=== PATIENT | female | born 1990 | race Caucasian/White ===

== ENCOUNTER → 2016-05-02 | Outpatient (CLI) | payer MEDICAID ==
[~2016-05-02] MED LIST: IBUP80TA PO
--- NOTE | 2016-05-02 15:03 | REP ---
OBSTETRIC SONOGRAPHY: HISTORY: Supervision of at 20 weeks. Follow up anatomy. FINDINGS: Scanning through the gravid uterus demonstrates a viable single intrauterine gestation in a cephalic lie. motion is observed and heart rate is recorder 149 beats per minute. An anterior grade 1 placenta is seen without evidence of previa or abruption. Amniotic fluid is subjectively normal. Closed cervical length is 3.7 cm. No extrauterine abnormalities observed. There has been appropriate interval growth. No anomaly is seen. The following anatomic structures are identified today and felt to be sonographically unremarkable: cranium, choroid plexus, cavum, cerebellum and posterior fossa, face and profile, lungs, four-chamber heart with left and right ventricular outflow tract views, diaphragm, left-sided stomach, abdominal wall cord insertion, three-vessel umbilical cord, kidneys, spine, upper and lower extremities. Biometry Chart: BPD 5.9 cm = 24 weeks 0 days HC 21.2 cm = 23 weeks 2 days AC 19.4 cm = 24 weeks 1 day FL 4.0 cm = 22 weeks 5 days HL 3.7 cm = 23 weeks 1 day HC/AC ratio normal 1.09. Cephalic index normal 0.78. Estimated weight 599 grams, 1 pound 5 ounces, 64th percentile for 22 weeks 6 days. IMPRESSION: Viable single intrauterine gestation at 23 weeks 3 days by today's composite sonographic criteria. Expected gestational age estimate based on prior sonography is 23 weeks 6 days. NADER by prior sonography is August 23, 2016. Signed by Abraham Echeverria MD 05/02/2016 03:11 P
== END ==
LOC: M RAD 12:11
PROVIDERS: ATTEND Obstetrics & Gynecology
DX: Z36 Encounter for antenatal screening of mother (principal); Z3A.23 23 weeks gestation of pregnancy

== ENCOUNTER → 2016-05-28 | Outpatient (CLI) | payer MEDICAID ==
[2016-05-28 15:23] LABS: BASO % 0.3 % (0.0-1.0); EOS # 0.1 K/mm3 (0.0-0.50); EOS % 1.3 % (0.0-3.0); LARGE UNSTAINED CELL # 0.1 K/mm3 (0.0-0.4); LARGE UNSTAINED CELL % 1.6 % (0.0-4.0); LYMPH # 1.9 K/mm3 (1.5-6.5); LYMPH % 21.4 % (24.0-44.0); MEAN CORPUSCULAR HEMOGLOBIN 30.8 pg (27.0-33.0); MEAN CORPUSCULAR HGB CONC 33.9 g/dl (32.0-36.5); MEAN CORPUSCULAR VOLUME 90.9 fl (80.0-96.0); MONO # 0.6 K/mm3 (0.0-0.8); MONO % 7.9 % (0.0-5.0); NEUTROPHILS # 5.5 K/mm3 (1.8-7.7); NEUTROPHILS % 67.5 % (36.0-66.0); PLATELET COUNT, AUTOMATED 192 k/mm3 (150-450); RED CELL DISTRIBUTION WIDTH 13.2 % (11.5-14.5); WHITE BLOOD COUNT 8.1 K/mm3 (4.0-10.0)
== END ==
LOC: M LAB 13:00
PROVIDERS: ATTEND Advanced Practice Midwife
DX: Z36 Encounter for antenatal screening of mother (principal); Z3A.00 Weeks of gestation of pregnancy not specified

== ENCOUNTER → 2016-07-13 | Outpatient (REF) | payer MEDICAID | LOC: M SFHCLERA 12:07 | PROVIDERS: ATTEND Physician Assistant | DX: J02.9 Acute pharyngitis, unspecified (principal) ==

== ENCOUNTER 2016-07-29 20:44 | Outpatient (CLI) | payer MEDICAID ==
[2016-07-29] VITALS (7 sets, daily range): BP systolic 69–105; BP diastolic 37–68
[2016-07-29] MEDS ORDERED: LR 1,000 ML IV ONE (22:00)
--- NOTE | 2016-07-29 22:23 | IPNPDOC ---
Text Note Date of Service The patient was seen on 07/29/16 at 2145. NOTE Subjective: Patient is a 25 year old female who is a at 35 weeks 3 days gestation with an NADER of 08/30/16 based off of her 1st trimester ultrasound and consistent with her LMP. She has had 2 prior full term deliveries via and desires a repeat . Her has been complicated by heartburn, which she occasionally takes the Zantac she was prescribed. She presents to L& D with complaints of chris [place] contractions, cramping, not feeling well, and back discomfort. She states for the last 4 days she hasn't felt well and has had occasional cramping. Reports back discomfort started at 1700 tonight. She also reports feeling pressure. Denies dysuria but reports frequency. States she relaxed and took a warm bath to help her back discomfort, which did not help. States she has been eating without any issues. Denies constipation. Denied vaginal bleeding or leaking of fluid. Reports active movement. O: FHR: 130, moderate variability, positive accelerations, 1 isolated deceleration noted but no other deceleration noted. Contractions every 2-5 minutes. Abdomen: gravid, soft to palpation. SVE: closed, thick, posterior, no show Extremities: bilateral lower feet and legs no edema. Urine dip: pH 1.005, +ketones, +leuks, +protein. Vital signs: 98.3, 133, 18, 104/57; repeat: 94 HR, 96/56. A: IUP at 35 wks 3 days gestation, not in labor, Category I FHR tracing P: Start IV, bolus of 1 liter of fluid, urine sent for UA and C&S. NST and vitals per protocols. Anticipate patient to be discharged home with mother. LOGAN MCKENNA CNM Jul 29, 2016 22:23
[2016-07-29] MEDS ORDERED: CEPHALEXIN 500 MG CAP PO ONE (22:45)
--- NOTE | 2016-07-29 23:23 | IPNPDOC ---
Text Note Date of Service The patient was seen on 07/29/16 at 2300. NOTE S: No changes. O: FHR 120, moderate variability, positive accelerations, no decelerations. Contractions: every 3-6 minutes. A: IUP at 35. 3 weeks gestation, Category I FHR tracing, urinary tract infection , not in labor P: Patient started on Keflex. Script sent to pharmacy. Reviewed with patient the importance of taking antibiotic as prescribed for 7 days. She will follow up in office at her next scheduled appointment on 08/05/16. Reviewed access to care, cross coverage of care, FKC, labor s/sx, and danger signs to report. Patient discharge to home with her mother. VS,Fishbone, I+O VS, Fishbone, I+O Vital Signs Date Time Temp Pulse Resp B/P Pulse Ox O2 Delivery O2 Flow Rate FiO2 07/29/16 21:56 93 07/29/16 21:50 94/61 07/29/16 20:53 98.3 18 LOGAN MCKENNA CNM Jul 29, 2016 23:23
== END 2016-07-29 23:35 | disposition home or self-care (01) ==
LOC: M LDO 20:44
PROVIDERS: ATTEND Advanced Practice Midwife
DX: O47.03 False labor before 37 completed weeks of gestation, third trimester (principal); O26.93 Pregnancy related conditions, unspecified, third trimester; R12 Heartburn; Z3A.35 35 weeks gestation of pregnancy

== ENCOUNTER → 2016-08-05 | Outpatient (REF) | payer MEDICAID ==
[~2016-08-05] MED LIST changes: +PRENTAB9 PO
== END ==
LOC: M LAB REF 16:49
PROVIDERS: ATTEND Obstetrics & Gynecology
DX: Z3A.36 36 weeks gestation of pregnancy (principal)

== ENCOUNTER 2016-08-12 09:56 | Outpatient (CLI) | payer MEDICAID ==
[~2016-08-12] VITALS: Ht 157.5 cm; Wt 62.0 kg
[~2016-08-12 09:56] MED LIST changes: -PRENTAB9 PO
[2016-08-12] MEDS ORDERED: PRENTAB9 PO (10:02)
[2016-08-12 10:04] VITALS: BP 101/60
[2016-08-12 10:09] VITALS: BP 85/53
[2016-08-12 10:17] VITALS: BP 94/63
[2016-08-12 10:38] LABS: CALCIUM OXALATE CRYSTALS SMALL
[2016-08-12 11:06] VITALS: BP 101/60
[2016-08-12] MEDS ORDERED: LR 1,000 ML IV SCH (11:15)
[2016-08-12] MEDS ORDERED: LACTATED RINGER'S 1000 ML IV ONE (11:15)
[2016-08-12 11:20] LABS: BASO % 0.4 % (0.0-1.0); EOS # 0.2 K/mm3 (0.0-0.50); EOS % 2.5 % (0.0-3.0); LARGE UNSTAINED CELL # 0.2 K/mm3 (0.0-0.4); LARGE UNSTAINED CELL % 1.9 % (0.0-4.0); LYMPH % 25.2 % (24.0-44.0); MEAN CORPUSCULAR HGB CONC 34.1 g/dl (32.0-36.5); MONO # 0.5 K/mm3 (0.0-0.8); MONO % 5.9 % (0.0-5.0); NEUTROPHILS % 64.2 % (36.0-66.0); PLATELET COUNT, AUTOMATED 213 k/mm3 (150-450); RED CELL DISTRIBUTION WIDTH 13.1 % (11.5-14.5); WHITE BLOOD COUNT 7.8 K/mm3 (4.0-10.0)
--- NOTE | 2016-08-12 11:27 | REP ---
OB ULTRASOUND: Real-time sonographic evaluation of the gravid uterus is performed utilizing transabdominal technique. There is a single living intrauterine gestation with a gestational age 37 weeks 3 days with EDC 08/30/2016. Today's measurements indicate appropriate growth. Biometry and Growth: BPD 94 mm = 38 weeks 1 day, 60th percentile HC 323 mm = 38 weeks 0 days, 60th percentile AC 340 mm = 38 weeks 0 days, 58th percentile FL 75 mm = 38 weeks 1 day, 60th percentile HC/AC ratio 0.98 within normal range. Estimated weight 3369 grams 66th percentile. Cervical length: Closed and measures 3.4 cm in length. heart rate: 144 beats per minute. position: Vertex Placenta: Anterior and grade 0 with no previa or abruption. Amniotic fluid: Lower limits of normal, NOEMY 7.2, normal range 7.4 to 24.2. Biophysical profile score 8 out of 8. S/D ratio 2.10 within normal range of 1.6 to 2.6. RI 0.52, slightly below the normal range of 0.59 to 0.75. Choroid plexus, four-chamber heart, stomach, kidneys, and bladder are visualized and are grossly unremarkable. Signed by Matthew Ocasio MD 08/12/2016 05:42 P
[2016-08-12 11:55] LABS: ALBUMIN 2.3 GM/DL (3.2-5.2); ALBUMIN/GLOBULIN RATIO 0.64 (1.00-1.93); ALKALINE PHOSPHATASE 260 U/L (45-117); ALT/SGPT 70 U/L (12-78); ANION GAP 10 MEQ/L (8-16); AST/SGOT 66 U/L (15-37); BILIRUBIN,TOTAL 1.1 MG/DL (0.2-1.0); BLOOD UREA NITROGEN 7 MG/DL (7-18); CALCIUM LEVEL 8.4 MG/DL (8.5-10.1); CARBON DIOXIDE LEVEL 24 MEQ/L (21-32); CHLORIDE LEVEL 107 MEQ/L (98-107); CREATININE FOR GFR 0.54 MG/DL (0.55-1.02); GLOMERULAR FILTRATION RATE > 60.0 (>60); GLUCOSE, FASTING 84 MG/DL (70-105); POTASSIUM SERUM 3.8 MEQ/L (3.5-5.1); SODIUM LEVEL 141 MEQ/L (136-145); TOTAL PROTEIN 5.9 GM/DL (6.4-8.2); URIC ACID 4.6 MG/DL (2.6-6.0)
--- NOTE | 2016-08-13 10:09 | IPNPDOC ---
Text Note Date of Service The patient was seen on 08/12/16 at 1230. NOTE SUBJECTIVE: Patient is a 25 year old female who is at 37 weeks 3 days gestation with NADER of 08/30/16 based off of 1st trimester ultrasound and consistent with her LMP. She is a prior section x2 and desires a repeat . She arrived to L&D with complaints of decreased movement. She reports not having movement for more than 12 hours. She is also complaining of feeling moist. Reports that the discharge soaked through he underwear. She reports putting a pad on at home and it stayed dry most of the day. Reports occasional irregular contractions. Denies vaginal bleeding. Allergies: NKDA Current medications: PNV, Zantac Medical: no current problems Surgical: section in 2007 and 2012, tonsilectomy Family history: non-contributory OBJECTIVE: VS see below. FHR: 150, moderate variability, positive accelerations , no decelerations, prolonged acceleration noted. Contractions are occasional. Sterile speculum exam done. Moderate amount of thin, white, discharge noted. No fluid noted from cervical os with cough. Negative nitrazine, negative wet prep, negative fern. ASSESSMENT: IUP at 37 weeks 3 days gestation, not in active labor, not spontaneously ruptured, Category I FHR tracing, prior section x2. PLAN: Patient discharged to home. Reviewed access to care, FKC, labor s/sx, and danger signs to report. Continue routine OB visits. Repeat c/s on 08/26/16 at 0730. VS,Freddy, I+O VS, Soye, I+O Laboratory Tests 08/12/16 11:12 Red Blood Count 3.43 L, Mean Corpuscular Volume 85.0, Mean Corpuscular Hemoglobin 29.0, Mean Corpuscular Hemoglobin Concent 34.1, Red Cell Distribution Width 13.1, Neutrophils (%) (Auto) 64.2, Lymphocytes (%) (Auto) 25.2, Monocytes (%) (Auto) 5.9 H, Eosinophils (%) (Auto) 2.5, Basophils (%) ( Auto) 0.4, Neutrophils # (Auto) 5.0, Lymphocytes # (Auto) 2.0, Monocytes # (Auto ) 0.5, Eosinophils # (Auto) 0.2, Basophils # (Auto) 0.0, Calcium Level 8.4 L, Aspartate Amino Transf (AST/SGOT) 66 H, Alanine Aminotransferase (ALT/SGPT) 70, Alkaline Phosphatase 260 H, Total Bilirubin 1.1 H, Uric Acid 4.6, Total Protein 5.9 L, Albumin 2.3 L Vital Signs Date Time Temp Pulse Resp B/P (MAP) Pulse Ox O2 Delivery O2 Flow Rate FiO2 08/12/16 11:06 83 101/60 (74) 08/12/16 10:04 97.2 18 LOGAN MCKENNA CNM August 13, 2016 10:09
== END 2016-08-12 13:01 | disposition home or self-care (01) ==
LOC: M LDO 09:56
PROVIDERS: ATTEND Obstetrics & Gynecology
DX: O36.8130 Decreased fetal movements, third trimester, not applicable or unspecified (principal); Z3A.37 37 weeks gestation of pregnancy

== ENCOUNTER 2016-08-22 01:21 | Inpatient (IN) | payer BC, MEDICAID ==
[~2016-08-22] VITALS: Ht 157.5 cm; Wt 63.0 kg
[2016-08-22] VITALS (10 sets, daily range): BP systolic 106–120; BP diastolic 56–70
[~2016-08-22 01:21] MED LIST changes: +PRENTAB9 PO; +ZANT1TAB PO
[2016-08-22] MEDS ORDERED: LACTATED RINGER'S 1000 ML IV STA (01:44)
[2016-08-22] MEDS ORDERED: LR 1,000 ML IV SCH (01:44)
[2016-08-22] MEDS ORDERED: ceFAZolin SOD 1 GM in D5W MINI-BAG PLUS 50 ML IV ONE (01:45)
[2016-08-22] MEDS ORDERED: BICITRA 30ML SOLN UDC PO ONE (01:45)
[2016-08-22 03:42] LABS: MEAN CORPUSCULAR HEMOGLOBIN 27.3 pg (27.0-33.0); MEAN CORPUSCULAR HGB CONC 32.6 g/dl (32.0-36.5); MEAN CORPUSCULAR VOLUME 83.9 fl (80.0-96.0); RED CELL DISTRIBUTION WIDTH 13.2 % (11.5-14.5); WHITE BLOOD COUNT 10.9 K/mm3 (4.0-10.0)
[2016-08-22] MEDS ORDERED: MORPHINE PRES-FREE INJ 10 MG/10 ML VIAL (J2274) As Ordered ONE (05:46)
[2016-08-22] MEDS ORDERED: OXYTOCIN INJ 10 UNITS/ML VIAL (J2590) As Ordered ONE (05:47)
[2016-08-22] MEDS ORDERED: ONDANSETRON 4MG/2ML VIAL (J2405) IV PRN ×3 (06:06→07:30)
[2016-08-22] MEDS ORDERED: NALBUPHINE HCL 10 MG/ML AMP (J2300) IV PRN ×2 (06:06→07:30)
[2016-08-22] MEDS ORDERED: NALOXONE INJ 0.4 MG/1 ML VIAL (J2310) IV PRN ×2 (06:06)
[2016-08-22] MEDS ORDERED: METOCLOPRAMIDE INJ 10MG/2ML VIAL (J2765) IV PRN (06:06)
[2016-08-22] MEDS ORDERED: PHENYLephrine HCL 500 MCG/5 ML (100MCG/ML) SYRINGE (J2370) As Ordered ONE (06:09)
[2016-08-22] MEDS ORDERED: ePHEDrine SULFATE 25 MG/5 ML(5MG/ML) SYRINGE As Ordered ONE (06:16)
[2016-08-22 06:32] LABS: CORD GAS ABE A -0.9; CORD GAS HCO3 A 25.8 MEQ/L; CORD GAS O2 SAT A 46.2 %; CORD GAS PCO2 A 51.2 mmHg; CORD GAS PH A 7.321 UNITS; CORD GAS PO2 A 20.1 mmHg; CORD GAS SBC A 22.5 MEQ/L; CORD GAS TCO2 A 27.4 MEQ/L
[2016-08-22 06:35] LABS: CORD GAS ABE V -3.3; CORD GAS O2 SAT V 43.4 %; CORD GAS PCO2 V 45.7 mmHg; CORD GAS PH V 7.319 UNITS; CORD GAS PO2 V 18.8 mmHg; CORD GAS SBC V 20.5 MEQ/L; CORD GAS TCO2 V 24.4 MEQ/L
[2016-08-22] MEDS ORDERED: ONDANSETRON 4MG/2ML VIAL (J2405) As Ordered ONE (06:36)
[2016-08-22] MEDS: LR 1,000 ML IV SCH ×2 (06:59→21:44)
[2016-08-22] MEDS ORDERED: MEASLES,MUMPS,RUBELLA VACCINE INJ (MMR-II) (90707) SC SCH (07:00)
[2016-08-22] MEDS ORDERED: METHYLERGONOVINE MALEATE 0.2 MG TAB PO PRN (07:00)
[2016-08-22] MEDS ORDERED: MOM 30ML SUSPENSION UDC PO PRN (07:00)
[2016-08-22] MEDS ORDERED: RHOGAM 300 MCG (1500 IU) INJ (J2790) IM SCH (07:00)
[2016-08-22] MEDS ORDERED: KETOROLAC 30 MG/ML VIAL (J1885) IV PRN (07:30)
[2016-08-22] MEDS ORDERED: fentaNYL 100 MCG/2 ML INJECTION (J3010) IV PRN (07:30)
[2016-08-22] MEDS ORDERED: KETOROLAC 30 MG/ML VIAL (J1885) As Ordered ONE (08:32)
[2016-08-22] MEDS: DOCUSATE SODIUM 100 MG CAP PO SCH ×2 (09:00→21:44)
[2016-08-22] MEDS: PRENATAL VITAMIN TAB PO SCH (09:00)
[2016-08-22] MEDS ORDERED: LR 500 ML IV ONE (12:15)
--- NOTE | 2016-08-22 15:01 | HPE ---
DATE OF ADMISSION: 08/22/2016 Savanna is a 25-year-old female, 3, para 2-0-0-2 with a history of two prior sections, estimated date of confinement (EDC) of 08/30/2016, estimated gestational age 38 and 5/7 weeks gestation who presented to labor and delivery with complaint of contraction and leakage of fluid. Upon evaluation in labor and delivery, her cervix was closed; however, she was having some uterine irritability and she was found to be positive for ferning. At this point, a decision was made to admit the patient. She was originally scheduled for repeat section in a few days. record was reviewed. Blood type is O+, rubella immune, hepatitis negative, HIV negative. 1-hour sugar testing was within normal limits. Group B streptococcus (GBS) is negative. PAST MEDICAL HISTORY: Denies. PAST SURGICAL HISTORY: section times two and tonsillectomy. SOCIAL HISTORY: Denies any alcohol or drug use. REVIEW OF SYSTEMS: Unremarkable. MEDICATIONS: vitamin. ALLERGIES: No known drug allergies. PHYSICAL EXAMINATION ON ADMISSION: Normal-appearing female in no acute distress. Abdomen is soft, nontender, nondistended. Extremities with no clubbing, cyanosis. Cervix is fingertip, 50% effaced, fetus at -3 station. No gross pooling noted in the vagina. Fern swab was done and the fern was positive. Tracing reviewed, category one tracing. Contractions irregular with lots of uterine irritability. ASSESSMENT: 1. Intrauterine at 38-5/7 weeks gestation with a history of two prior sections. 2. Spontaneous rupture of membranes with clear fluid. PLAN: The patient will be admitted to labor and delivery. Given that she is ruptured and was scheduled for a prior section, we will proceed with a repeat section. Awaiting operating room and labs for repeat section.
[2016-08-22] MEDS: IBUPROFEN 800 MG TAB PO SCH (17:06)
--- NOTE | 2016-08-22 19:57 | ECGEPIP ---
Stationary ECG Study [facility] Test Date: 2016-08-22 Pat Name: PATTIE HUANG Department: Room: [place] [address] Gender: F Turner And Former Automatic: KAREN MAGUIRE : 1990 Requested By: Zenon Horne Order Number: [id number] Reading MD: Paige Horner Measurements Intervals Bourg Rate: 115 P: 50 ND: 119 QRS: 74 QRSD: 100 T: 14 QT: 307 QTc: 426 Interpretive Statements SINUS TACHYCARDIA WITH SHORT ND INTERVAL ABNORMAL RHYTHM ECG NO PRIOR Electronically Signed On 08-22-2016 19:57:22 EDT by Paige Horner
[2016-08-23] MEDS: IBUPROFEN 800 MG TAB PO SCH ×3 (00:28→17:00)
[2016-08-23 02:43] VITALS: BP 105/58
[2016-08-23] MEDS: NORCO, ANEXSIA 5/325MG TABLET (HYDROcodone/ACETAMINOPHEN) PO PRN ×4 (06:02→21:02)
[2016-08-23 06:45] VITALS: BP 107/60
[2016-08-23] MEDS: LR 1,000 ML IV SCH (06:59)
[2016-08-23 07:22] LABS: MEAN CORPUSCULAR HGB CONC 32.7 g/dl (32.0-36.5); MEAN CORPUSCULAR VOLUME 85.9 fl (80.0-96.0); RED CELL DISTRIBUTION WIDTH 13.2 % (11.5-14.5)
[2016-08-23] MEDS: DOCUSATE SODIUM 100 MG CAP PO SCH ×2 (08:11→20:59)
[2016-08-23] MEDS: PRENATAL VITAMIN TAB PO SCH (08:11)
[2016-08-23] MEDS ORDERED: PERCOCET PO (08:41)
[2016-08-23 09:50] VITALS: BP 105/59
--- NOTE | 2016-08-23 10:07 | RO ---
DATE OF PROCEDURE: 08/22/2016 Savanna is a 25-year-old female 3, para 2-0-0-2 with a history of two prior sections who presented at 38-5/7 weeks gestation with rupture of membrane. She was already scheduled for prior section. The patient also desires permanent tubal sterilization. At this point, she was then taken to the operating room for the above-noted procedure. PREOPERATIVE DIAGNOSES: 1. Term for elective repeat section. 2. Spontaneous rupture of membrane. 3. Desires permanent tubal sterilization. POSTOPERATIVE DIAGNOSES: 1. Term for elective repeat section. 2. Spontaneous rupture of membrane. 3. Desires permanent tubal sterilization. PROCEDURE: 1. Repeat section. 2. Bilateral tubal ligation using Filshie clip 3. Revision of old scar. SURGEON: Zenon Horne DO SENIOR CREDIT ANALYST: Anny Velázquez ANESTHESIA: Spinal. COMPLICATIONS: None. ESTIMATED BLOOD LOSS: 500 mL. FINDINGS: Live male infant in occiput transverse position. scores of 8 and 9. weight 8 pounds 15 ounces. Normal-appearing tubes and ovaries. PROCEDURE: After obtaining informed consent, the patient was taken to the operating room where spinal anesthetic was found to be adequate. She was then draped and prepped usual sterile fashion. The supine position. At this point, an elliptical incision was made over her old scar. The old scar was removed. The incision was then carried down to the fascia. Fascia was incised in midline fashion and carried through laterally. Superior aspect of the fascia were grasped with two Elvis clamps, tented off and dissected off the rectus muscles sharply. The inferior aspect was dissected off in a similar fashion. Rectus muscles in midline fashion. Perineum identified. Peritoneal cavity entered bluntly. Superior and inferior dissection of the peritoneum was then done with good visualization of the bladder. At this point, a Mobius skin retractor was placed. A low-transverse uterine incision was made. was delivered in atraumatic fashion. Nose and mouth bulb suctioned. Cord doubly clamped and cut, and was handed over to the awaiting warmer. Cord blood and cord gas was sent. Placenta removed manually. Uterus cleared of all clot and debris and the uterine incision was then repaired in two separate layers of 0 Vicryl suture. Attention was then turned to the fallopian tubes where the fimbriated ends were identified and Filshie clip was applied approximately 2-3 cm away from the cornual area in each tube. Pelvis copiously irrigated with normal saline and suctioned out. Attention turned to the peritoneum, which was closed in a running fashion using #2-0 Vicryl. Fascia closed in two separate segment of #0 Vicryl sutures. All superficial bleeders coagulated and the skin was reapproximated in a subcuticular fashion using #3-0 Vicryl. Steri-Strips placed. The patient tolerated procedure well. She was then transferred to recovery room in stable condition.
[2016-08-23 14:00] VITALS: BP 115/58
[2016-08-23] MEDS ORDERED: SIMETHICONE 80 MG CHEW TAB PO PRN (15:45)
[2016-08-23] MEDS ORDERED: IBUPROFEN 800 MG TAB PO SCH (17:00)
[2016-08-23 18:30] VITALS: BP 124/64
[2016-08-24] MEDS: IBUPROFEN 800 MG TAB PO SCH ×2 (01:00→08:40)
[2016-08-24] MEDS: NORCO, ANEXSIA 5/325MG TABLET (HYDROcodone/ACETAMINOPHEN) PO PRN ×2 (05:40→09:48)
[2016-08-24 06:00] VITALS: BP 100/55
[2016-08-24] MEDS ORDERED: IBUP800T23 PO (08:21)
[2016-08-24] MEDS ORDERED: OXYC1TAB23 PO (08:23)
[2016-08-24] MEDS: DOCUSATE SODIUM 100 MG CAP PO SCH (08:38)
[2016-08-24] MEDS: PRENATAL VITAMIN TAB PO SCH (08:38)
[2016-08-24] MEDS ORDERED: MILKSUS PO (11:13)
== END 2016-08-24 13:35 | disposition home or self-care (01) | DRG 540 ==
LOC: M LDO 01:21 → M LDI 01:45 → M OBS 09:05
PROVIDERS: ADMIT Obstetrics & Gynecology; ATTEND Obstetrics & Gynecology
PROC: 0UL70DZ Occlusion of Bilateral Fallopian Tubes with Intraluminal Device, Open Approach (ICD-10-PCS; 2016-08-22)
PROC: 10D00Z1 Extraction of Products of Conception, Low, Open Approach (ICD-10-PCS; principal; 2016-08-22 06:17)
DX: O34.211 Maternal care for low transverse scar from previous cesarean delivery (principal); Z3A.38 38 weeks gestation of pregnancy; O75.82 Onset (spontaneous) of labor after 37 completed weeks of gestation but before 39 completed weeks gestation, with delivery by (planned) cesarean section; Z37.0 Single live birth; Z30.2 Encounter for sterilization

== ENCOUNTER → 2016-10-18 | Outpatient (REF) ==
[~2016-10-18] MED LIST changes: +CIPR-249 PO; +FLUC150T PO; +IBUP1TAB7 PO; +IRON65TA PO; +MILKSUS PO; +ORTHTAB14 PO; +OXYC1TAB23 PO; +PERCOCET PO; +PROV10TA PO; +PYRI1TAB5 PO
== END ==
LOC: M LAB 09:53
PROVIDERS: ATTEND Nurse Practitioner Adult Health
DX: Z02.1 Encounter for pre-employment examination (principal)

== ENCOUNTER → 2016-11-07 | Outpatient (REF) | payer MEDICAID ==
[2016-11-07 13:54] LABS: MEAN CORPUSCULAR HEMOGLOBIN 24.6 pg (27.0-33.0); MEAN CORPUSCULAR HGB CONC 31.2 g/dl (32.0-36.5); MEAN CORPUSCULAR VOLUME 78.9 fl (80.0-96.0); RED CELL DISTRIBUTION WIDTH 14.3 % (11.5-14.5); WHITE BLOOD COUNT 4.3 K/mm3 (4.0-10.0)
== END ==
LOC: M LAB REF 12:42
PROVIDERS: ATTEND Obstetrics & Gynecology
DX: N93.8 Other specified abnormal uterine and vaginal bleeding (principal)

== ENCOUNTER 2016-11-13 16:39 | Emergency (ER) | payer BC, MEDICAID ==
[~2016-11-13] VITALS: Ht 157.5 cm; Wt 57.6 kg
[~2016-11-13 16:39] MED LIST changes: -CIPR-249 PO; -FLUC150T PO; -IRON65TA PO; -ORTHTAB14 PO; -PROV10TA PO; -PYRI1TAB5 PO
[2016-11-13] MEDS ORDERED: NS 1,000 ML IV ONE (17:30)
[2016-11-13 17:51] LABS: BASO % 0.5 % (0.0-1.0); EOS # 0.1 K/mm3 (0.0-0.50); EOS % 1.3 % (0.0-3.0); LARGE UNSTAINED CELL # 0.1 K/mm3 (0.0-0.4); LARGE UNSTAINED CELL % 2.7 % (0.0-4.0); LYMPH % 41.3 % (24.0-44.0); MEAN CORPUSCULAR HEMOGLOBIN 23.2 pg (27.0-33.0); MEAN CORPUSCULAR HGB CONC 30.4 g/dl (32.0-36.5); MEAN CORPUSCULAR VOLUME 76.3 fl (80.0-96.0); MONO # 0.4 K/mm3 (0.0-0.8); MONO % 7.2 % (0.0-5.0); NEUTROPHILS # 2.2 K/mm3 (1.8-7.7); NEUTROPHILS % 46.9 % (36.0-66.0); PLATELET COUNT, AUTOMATED 290 k/mm3 (150-450); RED CELL DISTRIBUTION WIDTH 13.7 % (11.5-14.5); WHITE BLOOD COUNT 4.8 K/mm3 (4.0-10.0)
[2016-11-13 17:52] LABS: ADD MORPHOLOGY? YES
[2016-11-13 18:19] LABS: ALBUMIN 3.9 GM/DL (3.2-5.2); ALBUMIN/GLOBULIN RATIO 1.26 (1.00-1.93); ALKALINE PHOSPHATASE 64 U/L (45-117); ALT/SGPT 19 U/L (12-78); ANION GAP 9 MEQ/L (8-16); AST/SGOT 15 U/L (15-37); BILIRUBIN,DIRECT 0.2 MG/DL (0.0-0.2); BILIRUBIN,TOTAL 0.9 MG/DL (0.2-1.0); BLOOD UREA NITROGEN 8 MG/DL (7-18); CALCIUM LEVEL 8.7 MG/DL (8.5-10.1); CARBON DIOXIDE LEVEL 27 MEQ/L (21-32); CHLORIDE LEVEL 106 MEQ/L (98-107); CREATININE FOR GFR 0.72 MG/DL (0.55-1.02); GLOMERULAR FILTRATION RATE > 60.0 (>60); GLUCOSE, FASTING 105 MG/DL (70-105); POTASSIUM SERUM 3.7 MEQ/L (3.5-5.1); SODIUM LEVEL 142 MEQ/L (136-145)
[2016-11-13 18:47] LABS: ANISOCYTOSIS 1+; HYPOCHROMASIA 2+; MICROCYTOSIS 1+; OVALOCYTES 1+
[2016-11-13 18:49] LABS: POIKILOCYTOSIS 1+
--- NOTE | 2016-11-13 18:50 | REPUSA ---
CLINICAL HISTORY: Bleeding for three months. TECHNIQUE: Realtime sonographic images were obtained in multiple projections. COMMENTS: The uterus is anteverted measuring 9.9 x 5.2 x 7.4 cm. The endometrial echo pattern measures 26.0 mm in thickness. The endometrium is cystic and heterogeneous with some color flow, likely RPOC. There is no evidence of free fluid within the pelvic cul-de-sac. The right ovary measures 3.6 x 2.4 x 2.7 cm with a follicle noted measuring 1.8 x 2.3 x 2.0 cm. The l eft ovary measures 4.7 x 2.9 x 4.2 cm with a cyst noted measuring 2.4 x 3.3 x 2.7 cm. There is no evidence for abnormal vascularity. IMPRESSION: 1. The endometrium is cystic and heterogeneous with some color flow, likely RPOC. 2. Right ovarian follicle. 3. Left ovarian cyst. Thank you for your kind referral of this patient. We appreciate the opportunity to participate in thi s patient's care.
[2016-11-13 19:30] VITALS: BP 114/64
[2016-11-13] MEDS ORDERED: PROV10TA PO (20:09)
[2016-11-13] MEDS ORDERED: ORTHTAB14 PO (20:09)
--- NOTE | 2016-11-18 12:51 | ED PDOC ---
Post-Departure Follow-Up dr logan faxed formal report of pelvic us for fu Bacilio Dixon MD Nov 18, 2016 12:51
== END 2016-11-13 20:40 | disposition home or self-care (01) ==
LOC: M ED 16:39
DX: N93.8 Other specified abnormal uterine and vaginal bleeding (principal); D64.9 Anemia, unspecified; N83.01 Follicular cyst of right ovary; N83.292 Other ovarian cyst, left side; R10.2 Pelvic and perineal pain

== ENCOUNTER 2016-11-22 13:05 | Day surgery (SDC) | payer BC, MEDICAID ==
[~2016-11-22] VITALS: Ht 157.5 cm; Wt 56.8 kg
[~2016-11-22 13:05] MED LIST changes: +ORTHTAB14 PO; +PROV10TA PO
[2016-11-22] MEDS ORDERED: NS 1,000 ML IV ONE (14:15)
[2016-11-22 14:47] LABS: BASO % 0.9 % (0.0-1.0); EOS % 1.1 % (0.0-3.0); LARGE UNSTAINED CELL # 0.1 K/mm3 (0.0-0.4); LARGE UNSTAINED CELL % 2.3 % (0.0-4.0); LYMPH # 1.7 K/mm3 (1.5-6.5); LYMPH % 33.1 % (24.0-44.0); MEAN CORPUSCULAR VOLUME 76.9 fl (80.0-96.0); MONO # 0.4 K/mm3 (0.0-0.8); MONO % 8.2 % (0.0-5.0); NEUTROPHILS # 2.6 K/mm3 (1.8-7.7); NEUTROPHILS % 54.4 % (36.0-66.0); PLATELET COUNT, AUTOMATED 281 k/mm3 (150-450); RED CELL DISTRIBUTION WIDTH 15.8 % (11.5-14.5); WHITE BLOOD COUNT 4.7 K/mm3 (4.0-10.0)
[2016-11-22 14:57] LABS: ANION GAP 7 MEQ/L (8-16); BLOOD UREA NITROGEN 12 MG/DL (7-18); CALCIUM LEVEL 8.7 MG/DL (8.5-10.1); CARBON DIOXIDE LEVEL 24 MEQ/L (21-32); CHLORIDE LEVEL 107 MEQ/L (98-107); CREATININE FOR GFR 0.64 MG/DL (0.55-1.02); GLOMERULAR FILTRATION RATE > 60.0 (>60); GLUCOSE, FASTING 95 MG/DL (70-105); POTASSIUM SERUM 3.3 MEQ/L (3.5-5.1); SODIUM LEVEL 138 MEQ/L (136-145)
[2016-11-22] MEDS ORDERED: ORTHTAB14 PO (15:33)
[2016-11-22] MEDS ORDERED: PROV10TA PO (15:33)
[2016-11-22] MEDS ORDERED: IRON65TA PO (15:33)
--- NOTE | 2016-11-22 15:57 | REP ---
PELVIC ULTRASOUND: Real-time sonographic evaluation of the pelvis performed utilizing transabdominal and endovaginal technique. Bladder measures 5.9 x 4.0 x 8.9 cm. Uterus measures 8.6 x 4.9 x 6.1 cm. The endometrium is again thickened and heterogeneous measuring 25 mm in AP dimension. This is similar to the prior study of 11/13/2016. There are areas of blood flow within the endometrial echo complex with duplex Doppler evaluation. There are also areas of complex fluid. Findings are compatible with a mixture of retained products of conception and hemorrhage within the endometrial cavity. There is also a hypoechoic area at the section scar likely representing a small hematoma 1.5 x 1.2 x 1.2 cm. Right ovary measures 5.0 x 3.3 x 3.7 cm and contains a cystic structure with an internal daughter cyst 2.7 x 2.2 x 2.4 cm. Left ovary measures 5.1 x 3.0 x 3.9 cm with a cystic structure measuring 2.8 x 2.1 x 2.5 cm. There is no other evidence of adnexal mass. There is no evidence of ovarian torsion with blood flow seen in each ovary with duplex Doppler evaluation, RI right ovary is 0.61 and left ovary 0.57. There is mild free fluid in the pelvis. IMPRESSION: Endometrial thickness 25 mm with findings compatible with a mixture of retained products of conception and hemorrhage in the endometrial cavity. Small hematoma at the section scar in the lower uterine segment maximum diameter is 1.5 cm. Small cystic structure is seen in each ovary without torsion. Mild free fluid in the pelvis. Signed by Matthew Ocasio MD 11/22/2016 05:14 P
[2016-11-22] MEDS ORDERED: PROPOFOL 200 MG/20 ML VIAL As Ordered ONE (19:32)
[2016-11-22] MEDS ORDERED: fentaNYL 100 MCG/2 ML INJECTION (J3010) As Ordered ONE (19:33)
[2016-11-22] MEDS ORDERED: MIDAZOLAM INJ 2 MG/2 ML VIAL (J2250) As Ordered ONE (19:34)
[2016-11-22] MEDS ORDERED: dexameTHASONE 4 MG/ML 1ML VIAL (J1100) As Ordered ONE (19:35)
[2016-11-22] MEDS ORDERED: LIDOCAINE 1% SDV INJ 30 ML VIAL As Ordered ONE (20:25)
[2016-11-22] MEDS ORDERED: SUCCINYLCHOLINE 100 MG/5 ML SYRINGE (J0330) As Ordered ONE (20:51)
[2016-11-22] MEDS ORDERED: ONDANSETRON 4MG/2ML VIAL (J2405) As Ordered ONE ×2 (20:51→21:07)
[2016-11-22] MEDS ORDERED: METOCLOPRAMIDE INJ 10MG/2ML VIAL (J2765) As Ordered ONE (21:07)
[2016-11-22] MEDS ORDERED: KETOROLAC 30 MG/ML VIAL (J1885) As Ordered ONE (21:14)
[2016-11-22] MEDS ORDERED: DOXYCYCLINE HYCLATE 100 MG TAB As Ordered ONE (21:16)
[2016-11-22] MEDS ORDERED: DOXYCYCLINE HYCLATE 100 MG TAB PO ONE (21:40)
[2016-11-22] MEDS ORDERED: PERCOCET 5MG/325MG TAB As Ordered ONE (21:42)
[2016-11-22] MEDS ORDERED: fentaNYL 100 MCG/2 ML INJECTION (J3010) IV PRN (22:00)
[2016-11-22] MEDS ORDERED: PERCOCET 5MG/325MG TAB PO PRN ×2 (22:00→22:15)
[2016-11-22] MEDS ORDERED: METOCLOPRAMIDE INJ 10MG/2ML VIAL (J2765) IV PRN (22:00)
[2016-11-22] MEDS ORDERED: LR 1,000 ML IV SCH (22:00)
[2016-11-22] MEDS ORDERED: ONDANSETRON 4MG/2ML VIAL (J2405) IV PRN (22:00)
[2016-11-22 22:35] VITALS: BP 113/55
[2016-11-23] MEDS ORDERED: KETOROLAC 30 MG/ML VIAL (J1885) IV SCH (04:00)
--- NOTE | 2016-11-23 13:37 | RO ---
DATE OF PROCEDURE: 11/22/2016 PREOPERATIVE DIAGNOSIS: Abnormal uterine bleeding. POSTOPERATIVE DIAGNOSIS: Abnormal uterine bleeding. PROCEDURE PERFORMED: Dilation with sharp and suction curettage. SURGEON: Sherry Barrientos MD TOMOGRAPHIC TECH: None. ANESTHESIA: General endotracheal anesthesia. ESTIMATED BLOOD LOSS: 100 mL. INTRAVENOUS FLUIDS: There was 400 mL of normal saline as well as one unit pack of red blood cells given in the operating room (OR). SPECIMENS: Endometrial curettings. ANTIBIOTICS: The patient will receive 200 mg of oral doxycycline postoperatively. OPERATIVE FINDINGS: The patient was sounded to 5 cm, moderate amounts of tissue obtained on suction and sharp curettage. INDICATION FOR OPERATION: This patient is a 26-year-old gravid 3, para 3 who presents approximately 3 months postoperative from section. She reports that she has had persistent vaginal bleeding since her delivery in August. She states that this bleeding has remained constant throughout this time. She has been evaluated in the emergency room for this complaint and was found to be anemic. Her hemoglobin has continuously dropped. On the day of presentation, it is 6.8. She has had a pelvic ultrasound that demonstrated a thickened endometrium with possible tissue in the uterus measuring approximately 27 mm. On the day of presentation, she presented with a near syncopal episode and began a blood transfusion in the emergency department for symptomatic anemia. Counseled patient on these findings and recommendation for endometrial sampling with dilation and curettage. DESCRIPTION OF PROCEDURE: After informed consent was obtained and written consent was reviewed, the patient was brought to the operating room where general endotracheal anesthesia was obtained. She was then placed in the lithotomy position and was prepped and draped in the normal sterile fashion. A time-out in the operating room was then performed, identifying the patient, procedure to be performed as well as drug allergies. A bivalve speculum was then placed, revealing the cervix. The anterior lip of the cervix was grasped with a single tooth tenaculum. The cervix was slightly dilated on examination. Uterine sound was then used to sound the uterus to 8 cm. The cervix was then sequentially dilated using Hanks dilators. A #8 uterine suction curette was then advanced through the cervical os to the level of the fundus. Curette was attached to suction. Suction was deployed. The uterus was curetted in a 360-degree fashion with moderate amounts of tissue obtained. This was performed a series of three times. Next, a sharp curette was then advanced through the cervical os to the level of fundus and the uterus was curetted in a 360-degree fashion. Minimal amounts of tissue obtained upon the sharp curetting. A final pass with the suction curette was performed, productive of minimal amounts of blood with tissue was obtained and sent to pathology for evaluation. Single tooth tenaculum was removed. Tenaculum sites were noted to be hemostatic. Speculum was removed. The patient was then taken out of the lithotomy position, was awakened from general anesthesia and taken to recovery in stable condition. All counts were correct. MTDD
== END 2016-11-22 22:35 | disposition home or self-care (01) ==
LOC: M ED 13:05 → M SDC 19:22
PROVIDERS: ATTEND Obstetrics & Gynecology
DX: N93.9 Abnormal uterine and vaginal bleeding, unspecified (principal); D64.9 Anemia, unspecified; F41.9 Anxiety disorder, unspecified; R10.2 Pelvic and perineal pain; Z87.42 Personal history of other diseases of the female genital tract; Z79.899 Other long term (current) drug therapy; Z79.3 Long term (current) use of hormonal contraceptives
CPT/HCPCS: 36430; 58120; 76830; 76856; 80048; 81001; 84702; 85025; 85610; 85730; 86850; 86900; 86901; 86920; 88305; 93976; 96360; 96361; 99285; J0330; J1100; J1885; J2250; J2405; J2765; J3010; P9016

== ENCOUNTER 2017-01-19 22:33 | Emergency (ER) | payer BC, MEDICAID, SELFPAY ==
[~2017-01-19] VITALS: Ht 157.5 cm; Wt 56.8 kg
[~2017-01-19 22:33] MED LIST changes: +IRON65TA PO
[2017-01-20 03:02] VITALS: BP 136/67
[2017-01-20] MEDS ORDERED: FLUC150T PO (03:11)
[2017-01-20] MEDS ORDERED: PYRI1TAB5 PO (03:11)
[2017-01-20] MEDS ORDERED: CIPR-249 PO (03:11)
[2017-01-20] MEDS ORDERED: PHENAZOPYRIDINE 100 MG TAB PO ONE (03:15)
[2017-01-20] MEDS ORDERED: CIPROFLOXACIN 500 MG TAB PO ONE (03:15)
== END 2017-01-20 03:23 | disposition home or self-care (01) ==
LOC: M ED 22:33
DX: N30.00 Acute cystitis without hematuria (principal)

== ENCOUNTER → 2017-07-31 | Outpatient (REF) | payer BC, MEDICAID ==
[2017-07-31 18:11] LABS: CHLAMYDIA DNA AMPLIFICATION NEGATIVE (NEGATIVE); GC DNA AMPLIFICATION NEGATIVE (NEGATIVE)
== END ==
LOC: M SFHCLERA 14:04
DX: J06.9 Acute upper respiratory infection, unspecified (principal)
CPT/HCPCS: 87086

== ENCOUNTER → 2018-01-20 | Outpatient (REF) | payer MEDICAID | LOC: M SFHCLERA 11:20 | DX: J06.9 Acute upper respiratory infection, unspecified (principal) ==

== ENCOUNTER → 2019-05-06 | Outpatient (CLI) | payer MEDICAID ==
[~2019-05-06] MED LIST changes: +CIPR-249 PO; +FLUC150T PO; +MILK120011 PO; -MILKSUS PO; +ORTH1TAB8 PO; -ORTHTAB14 PO; +PYRI1TAB5 PO; +ZANT150T15 PO; -ZANT1TAB PO
--- NOTE | 2019-05-06 12:07 | REP ---
Chest x-ray: Two views. History: Chest congestion . Comparison study: No comparison chest x-ray. . Findings: The lungs are well inflated and free of infiltrate. The pleural angles are sharp. The heart size is normal. Pulmonary vasculature is not increased. No significant bony abnormality is seen. Impression: Negative chest x-ray. Electronically Signed by Abraham Echeverria MD 05/06/2019 11:58 A
== END ==
LOC: M LRY 11:37
PROVIDERS: ATTEND Nurse Practitioner Family
DX: R09.89 Other specified symptoms and signs involving the circulatory and respiratory systems (principal)

== ENCOUNTER → 2020-04-24 | Outpatient (CLI) | payer MEDICAID ==
--- NOTE | 2020-04-24 13:28 | REP ---
INDICATION: N63.10 RIGHT BREAST MASS. COMPARISON: None TECHNIQUE: Real-time sonographic evaluation of right breast performed. FINDINGS: At the site of the reported palpable lump at 6 o'clock right breast no discrete cystic or solid nodule is seen. IMPRESSION: BIRADS/ACR category 1, negative ultrasound right breast at 6 o'clock position, at the site of the reported palpable lump. No discrete cystic or solid mass is seen. RECOMMENDATION: Clinical correlation and follow-up. <Electronically signed by Matthew Ocasio > 04/24/20 [id number]
== END ==
LOC: M WHC 10:48
PROVIDERS: ATTEND Nurse Practitioner Family
DX: N63.10 Unspecified lump in the right breast, unspecified quadrant (principal)

== ENCOUNTER → 2020-05-09 | Outpatient (CLI) | payer SELFPAY | LOC: M LABSMTC 10:15 | PROVIDERS: ATTEND Pediatrics | DX: Z20.822 Contact with and (suspected) exposure to COVID-19 (principal) ==

== ENCOUNTER → 2020-07-25 | Outpatient (CLI) | payer MEDICAID, OTHER ==
--- NOTE | 2020-07-26 02:11 | REP ---
INDICATION: PAIN COMPARISON: None. TECHNIQUE: AP, lateral, bilateral oblique views. FINDINGS: No acute fracture or dislocation. Skeletal structures and joint spaces are intact and normal. Ankle mortise appears stable. No subcutaneous emphysema or radiodense foreign body. IMPRESSION: Normal age-appropriate right ankle radiograph series. <Electronically signed by Russell Chaudhary > 07/26/20 [id number]
--- NOTE | 2020-07-26 02:12 | REP ---
INDICATION: PAIN COMPARISON: None. TECHNIQUE: AP, lateral, bilateral oblique views right foot. FINDINGS: The osseous structures and joint spaces are intact and normal. There is no evidence for acute fracture or dislocation. Surrounding soft tissues are unremarkable. No subcutaneous emphysema or radiodense foreign body. IMPRESSION: Age-appropriate right foot radiographs. No acute fracture or dislocation. <Electronically signed by Russell Chaudhary > 07/26/20 [id number]
== END ==
LOC: M WUC 13:13
PROVIDERS: ATTEND Nurse Practitioner Family
DX: M79.671 Pain in right foot (principal)

== ENCOUNTER 2020-12-02 02:58 | Observation (INO) | payer OTHER ==
[~2020-12-02] VITALS: Ht 157.5 cm; Wt 82.1 kg
[2020-12-02] MEDS ORDERED: ALBU8.5H PO (03:18)
[2020-12-02] MEDS ORDERED: PRED10TA2 PO (03:18)
[2020-12-02] MEDS ORDERED: FLUO40CA PO (03:18)
[2020-12-02] MEDS ORDERED: HYDR50TA70 PO (03:18)
--- NOTE | 2020-12-02 05:26 | REPVR ---
PROCEDURE INFORMATION: Exam: XR Right Ankle Exam date and time: 12/02/2020 3:57 AM Age: 30 years old Clinical indication: Pain; Ankle; Right; Additional info: Fell into a rut and injured ankle TECHNIQUE: Imaging protocol: XR Right ankle. Views: 3 or more views. COMPARISON: CR ANKLE COMPLETE 07/25/2020 1:30 PM FINDINGS: Bones/joints: Trimalleolar fracture. Minimally displaced fractures involving the medial and posterior malleoli of the distal tibia with a slight step-off of the posterior articular surface. Oblique fracture involving the distal fibular metadiaphysis with few mm of diastasis. No significant angulation deformities. No dislocation. No other fractures. Soft tissues: Generalized soft tissue swelling which appears most pronounced laterally. Several small radiodense foci along the plantar aspect of the foot which may represent external artifact or soft tissue foreign bodies. IMPRESSION: 1. Soft tissue swelling. 2. Several small radiodense foci along the plantar aspect of the foot which may represent external artifact or soft tissue foreign bodies. Correlate with soft tissue injury. 3. Trimalleolar fracture involving the distal tibia/fibula. Electronically signed by: Russell Marquis On 12/02/2020 05:25:22 AM
[2020-12-02] MEDS ORDERED: HOME MED LIST COMPLETE! XX SCH (06:55)
[2020-12-02] MEDS ORDERED: MIDAZOLAM INJ 2MG/2ML VIAL (J2250 PER 1MG) IV PRN (07:01)
[2020-12-02 07:22] LABS: BASO # 0.1 10^3/uL (0.0-0.2); BASO % 0.6 % (0.0-1.0); EOS # 0.1 10^3/uL (0.0-0.5); EOS % 0.8 % (0.0-3.0); HEMOGLOBIN 12.8 g/dl (12.0-15.5); LYMPH # 2.9 10^3/uL (1.5-5.0); LYMPH % 19.6 % (24.0-44.0); MEAN CORPUSCULAR HGB CONC 32.8 g/dl (32.0-36.5); MEAN CORPUSCULAR VOLUME 88.4 fl (80.0-96.0); MONO # 1.2 10^3/uL (0.0-0.8); MONO % 8.1 % (2.0-8.0); NEUTROPHILS # 10.2 10^3/uL (1.5-8.5); NEUTROPHILS % 69.9 % (36.0-66.0); PLATELET COUNT, AUTOMATED 222 10^3/uL (150-450); RED BLOOD COUNT 4.41 10^6/uL (4.00-5.40); WHITE BLOOD COUNT 14.5 10^3/uL (4.0-10.0)
[2020-12-02 07:35] LABS: BLOOD UREA NITROGEN 16 MG/DL (7-18); CALCIUM LEVEL 8.8 MG/DL (8.5-10.1); CARBON DIOXIDE LEVEL 27 MEQ/L (21-32); CHLORIDE LEVEL 107 MEQ/L (98-107); CREATININE FOR GFR 0.64 MG/DL (0.55-1.30); ETHYL ALCOHOL (ETHANOL) 0.017 % (0.000-0.010); GLOMERULAR FILTRATION RATE > 60.0 (>60); GLUCOSE, FASTING 103 MG/DL (70-100); POTASSIUM SERUM 3.4 MEQ/L (3.5-5.1); SODIUM LEVEL 141 MEQ/L (136-145)
--- NOTE | 2020-12-02 08:03 | REPVR ---
PROCEDURE INFORMATION: Exam: XR Right Tibia and Fibula Exam date and time: 12/02/2020 7:48 AM Age: 30 years old Clinical indication: Injury or trauma; Fall; Fracture, traumatic; Closed fracture; Ankle; Right; Trimalleolar; Additional info: Rle pain, known trimalleolar FX TECHNIQUE: Imaging protocol: XR Right tibia and fibula. Views: 2 views. COMPARISON: CR Ankle, complete RIGHT 12/02/2020 3:23 AM FINDINGS: Bones/joints: Redemonstration of a mildly displaced trimalleolar fracture involving the distal tibia and fibula. Tibia and fibula appear otherwise intact. Preservation of the tibiofemoral joint space. Soft tissues: Soft tissue swelling in the region of the ankle. IMPRESSION: Trimalleolar fracture involving the distal tibia and fibula. No other fracture. Electronically signed by: Russell Marquis On 12/02/2020 08:03:11 AM
[2020-12-02] MEDS ORDERED: ONDANSETRON 4MG/2ML VIAL IV ONE (08:05)
[2020-12-02] MEDS ORDERED: MORPHINE 4 MG/ML 1ML VIAL/SYRINGE (J2270) IV ONE (08:05)
[2020-12-02 08:07] LABS: RSV AMPLIFICATION NEGATIVE (NEGATIVE)
--- NOTE | 2020-12-02 10:47 | REP ---
INDICATION: pre-op for trimalleolar fracture. COMPARISON: None. TECHNIQUE: Axial noncontrast images through the ankle with coronal and sagittal reformations. FINDINGS: Comminuted, relatively nondisplaced trimalleolar fractures identified along with significant posttraumatic soft tissue infiltration. Axial images best demonstrate a subtle cortical irregularity along the lateral aspect of the calcaneus which may represent a subtle nondisplaced incomplete fracture (series 201; images 60-65). No further acute fracture or dislocation identified. IMPRESSION: 1. Comminuted trimalleolar fractures. 2. Possible subtle incomplete fracture along the lateral cortex of the mid calcaneus. 3. Associated posttraumatic changes and infiltration to the surrounding soft tissues. <Electronically signed by Russell Chaudhary > 12/02/20 1045
[2020-12-02] MEDS ORDERED: hydrOXYzine 50 MG TAB PO PRN (13:25)
[2020-12-02] MEDS ORDERED: ALBUTEROL 90 MCG/ACT 8GM HFA INHALER INH PRN (13:25)
[2020-12-02] MEDS ORDERED: MORPHINE 4 MG/ML 1ML VIAL/SYRINGE (J2270) IV PRN (13:25)
--- NOTE | 2020-12-02 13:38 | HPEPDOC ---
[facility] Medical History & Physical Date of Admission Dec 02, 2020 Date of Service: Dec 02, 2020 Primary Care Physician: MARION COTTON Attending Physician: RADHIKA MCCONNELL DO History and Physical CHIEF COMPLAINT: Right-sided trimalleolar fracture HISTORY OF PRESENT ILLNESS: Patient reports that yesterday she had been drinking because it was the birthday of a recently friend, therefore she and many of her friends got together. She apparently had approximately 8-10 beers as well as some shots, had and then they were out for wheeling. Her injury did not occur as a result of being on a 4 garcia, but rather she was running through the field, and twisted her ankle. She presented to the emergency department because of her right ankle pain, and was subsequently found to have a comminuted trimalleolar fracture of the right ankle. She is accompanied in the room by her mother June Rodriguez who provides some of the history as well. Her mother would like to be appraised of her situation after the completion of surgery so that she can inform the rest of the family. Her phone number is CODE STATUS: Full code PAST MEDICAL HISTORY: Mild asthma Insomnia Depression PAST SURGICAL HISTORY: Tonsillectomy x3 [place] teeth extraction D&C Tubal ligation SOCIAL HISTORY: Reports that she quit smoking approximately 3 years ago. She does drink perhaps 2 beers daily, yesterday she drank more because there was a special occasion. She was certainly counseled that drinking 2 drinks daily was more than the recommended amount regardless. She denies any illicit drug use. FAMILY HISTORY: Hypertension and heart disease in both her maternal and paternal sides of the family REVIEW OF SYSTEMS: Constitutional: Patient denies fevers, chills, night sweats, recent weight gain/loss. HEENT: Patient denies blurred or double vision, transient visual disturbances, postnasal drip, epistaxis, sore throat, difficulty chewing or swallowing food. Cardiovascular: Patient denies chest discomfort/pain, palpitations, exertional dyspnea, orthopnea, edema of the extremities, claudication. Respiratory: Patient denies dyspnea, wheezing, cough, hemoptysis, sputum production. Gastrointestinal: Patient denies nausea, vomiting, diarrhea, constipation, abdominal pain, melena, hematochezia, hematemesis, jaundice. Musculoskeletal: She is complaining of significant right ankle pain, however it is somewhat improved since they have applied the splint. PHYSICAL EXAMINATION: General: Awake, alert, oriented x3. She does not appear to be in any acute di stress at this time. HEENT: Head normocephalic atraumatic, conjunctiva are pink, sclera are nonicter ic, buccal mucosa is pink and moist with no lesions in the oropharynx. Hearing is grossly intact to conversation. Respiratory: Clear to auscultation bilaterally with no wheezes, rales, or rhonchi. Cardiovascular: Regular rate and rhythm, with no rubs, gallops, or murmur. Abdomen: Soft, nontender, nondistended, no hepatosplenomegaly appreciated. Bowel sounds present. Extremities: 2+ pulses in the radial and dorsalis pedis bilaterally. No evidence of clubbing or cyanosis. ASSESSMENT/PLAN: Trimalleolar fracture of the right ankle -Surgery and postoperative care per recommendations from the orthopedic surgery team. Pain management this time will be achieved using Toradol and morphine since she is NPO prior to her operation. The surgical team is certainly welcome to adjust her pain regimen postoperatively. Mild asthma -Currently not in exacerbation. Continue with as needed albuterol inhaler Depression -Continue Prozac Insomnia -Continue as needed hydroxyzine DVT prophylaxis -Since the patient is scheduled to go to surgery tonight I will hold off on giving her any blood thinners. Also, since the injury is to her right ankle applying teds and sequentials is contraindicated. Therefore, I will not be giving her any DVT prophylaxis prior to her surgery. The need for anticoagulat ion and DVT prophylaxis can be determined postoperatively. Vital Signs Vital Signs Date Time Temp Pulse Resp B/P (MAP) Pulse Ox O2 Delivery O2 Flow Rate FiO2 12/02/20 12:26 67 16 111/67 (82) 99 12/02/20 11:09 Room Air 12/02/20 05:14 98.1 Laboratory Data Labs 24H Laboratory Tests 2 12/02/20 06:49: Immature Granulocyte % (Auto) 1.0, Neutrophils (%) (Auto) 69.9H, Lymphocytes (%) (Auto) 19.6L, Monocytes (%) (Auto) 8.1H, Eosinophils (%) (Auto) 0.8, Basophils (%) (Auto) 0.6, Neutrophils # (Auto) 10.2H, Lymphocytes # (Auto) 2.9, Monocytes # (Auto) 1.2H, Eosinophils # (Auto) 0.1, Basophils # (Auto) 0.1, Nucleated Red Blood Cells % (auto) 0.0, Anion Gap 7L, Glomerular Filtration Rate > 60.0, Calcium Level 8.8, Ethyl Alcohol Level 0.017H, Coronavirus (COVID-19)(PCR) NEGATIVE, Influenza Type A (RT-PCR) NEGATIVE, Influenza Type B (RT-PCR) NEGATIVE, Respiratory Syncytial Virus (PCR) NEGATIVE 12/02/20 06:59: POC Beta HCG, Quantitative < 5.0 CBC/BMP Laboratory Tests 12/02/20 06:49 Home Medications Scheduled Albuterol Sulfate (Albuterol Sulfate Hfa) 8.5 Gm Hfa.aer.ad, 2 PUFFS PO TID Fluoxetine Hcl (Fluoxetine HCl) 40 Mg Capsule, 40 MG PO QHS Hydroxyzine HCl (Hydroxyzine HCl) 50 Mg Tablet, 50 MG PO QHS Prednisone (Prednisone) 10 Mg Tablet, 10 MG PO DAILY taper dose started 11/23/20 x10 days Allergies Coded Allergies: No Known Allergies (Unverified , 01/19/17) A-FIB/CHADSVASC A-FIB History Current/History of A-Fib/PAF?: No RADHIKA MCCONNELL DO Dec 02, 2020 13:38
[2020-12-02] MEDS ORDERED: KETOROLAC 30 MG/ML 1ML VIAL IV ONE (14:00)
[2020-12-02] MEDS: LR 1,000 ML IV SCH (14:52)
[2020-12-02] MEDS ORDERED: propofoL 200 MG/20 ML VIAL As Ordered ONE (15:43)
[2020-12-02] MEDS ORDERED: LIDOCAINE 2% 100MG/5ML SDV (FOR ANES.) As Ordered ONE (15:43)
[2020-12-02] MEDS ORDERED: fentaNYL 100 MCG/2 ML INJECTION (J3010) As Ordered ONE (15:43)
[2020-12-02] MEDS ORDERED: MIDAZOLAM INJ 2MG/2ML VIAL (J2250 PER 1MG) As Ordered ONE (15:43)
[2020-12-02] MEDS ORDERED: ONDANSETRON 4MG/2ML VIAL As Ordered ONE (15:44)
[2020-12-02] MEDS ORDERED: dexameTHASONE 4 MG/ML 1ML VIAL (J1100 PER 1MG) As Ordered ONE (15:44)
[2020-12-02] MEDS ORDERED: ROCURONIUM BROMIDE 50 MG/5 ML VIAL As Ordered ONE ×3 (15:44→22:17)
[2020-12-02 16:30] VITALS: BP 105/70
[2020-12-02] MEDS ORDERED: LACRILUBE (AKWA TEARS) OPHTH OINT 3.5 GM As Ordered ONE (17:00)
[2020-12-02] MEDS ORDERED: KETOROLAC 30 MG/ML 1ML VIAL IV PRN (19:00)
[2020-12-02] MEDS ORDERED: ceFAZolin 2 GM/D5W 50 ML IV BAG (J0690 PER 500MG) As Ordered ONE (19:32)
[2020-12-02] MEDS ORDERED: TRANEXAMIC ACID 100 MG/ML 10ML VIAL As Ordered ONE (19:32)
[2020-12-02] MEDS ORDERED: SUGAMMADEX SODIUM 500 MG/5 ML VIAL (BRIDION) As Ordered ONE (20:17)
[2020-12-02] MEDS ORDERED: METOCLOPRAMIDE INJ 10MG/2ML VIAL (J2765 PER 1) As Ordered ONE (20:18)
[2020-12-02] MEDS ORDERED: KETAMINE HCL 200 MG/20 ML VIAL As Ordered ONE (20:21)
[2020-12-02] MEDS ORDERED: GLYCOPYRROLATE INJ 0.2 MG/ML 2 ML VIAL As Ordered ONE (20:22)
[2020-12-02] MEDS ORDERED: HYDROmorphone HCL 2 MG/ML 1ML VIAL (J1170) As Ordered ONE (20:28)
[2020-12-02] MEDS ORDERED: ACETAMINOPHEN 1000MG 100ML IV BTL (OFIRMEV) (J0131 PER 10MG) As Ordered ONE (20:40)
[2020-12-02] MEDS ORDERED: FLUoxetine 20 MG CAP PO SCH (21:00)
[2020-12-02] MEDS ORDERED: LABETALOL 100MG/20ML VIAL As Ordered ONE (21:59)
[2020-12-02] MEDS ORDERED: VANCOMYCIN 1000MG/20ML VIAL As Ordered ONE ×2 (22:03→23:53)
[2020-12-02] MEDS ORDERED: BUPIVACAINE HCL 0.25% 30ML VIAL As Ordered ONE (23:53)
[2020-12-02] MEDS ORDERED: ROPIvacaine 0.5% 30ML INJECTION (J2795 PER 1MG) XX ONE (23:55)
[2020-12-02] MEDS ORDERED: LIDOCAINE 1% MDV 20ML VIAL XX ONE (23:55)
[2020-12-03] VITALS (7 sets, daily range): BP systolic 100–114; BP diastolic 56–66
[2020-12-03] MEDS ORDERED: ceFAZolin 2 GM/D5W 50 ML IV BAG (J0690 PER 500MG) As Ordered ONE (00:21)
[2020-12-03] MEDS ORDERED: EPINEPHrine INJ 1 MG/ML 1ML AMP XX ONE (00:40)
[2020-12-03] MEDS ORDERED: dexameTHASONE 10MG/1ML VIAL PRES.FREE (J1100 PER 1MG) XX ONE (00:40)
[2020-12-03] MEDS ORDERED: MIDAZOLAM INJ 2MG/2ML VIAL (J2250 PER 1MG) As Ordered ONE (00:43)
[2020-12-03] MEDS ORDERED: HYDROMORPHONE HCL 0.5 MG/ 0.5 ML SYRINGE (J1170 PER 1) IV PRN (00:55)
[2020-12-03] MEDS ORDERED: oxyCODONE 5MG TAB PO PRN (00:55)
[2020-12-03] MEDS ORDERED: fentaNYL 100 MCG/2 ML INJECTION (J3010) IV PRN (00:55)
[2020-12-03] MEDS ORDERED: LR 1,000 ML IV SCH (00:55)
[2020-12-03] MEDS: LR 1,000 ML IV SCH (03:00)
--- NOTE | 2020-12-03 07:03 | RO ---
OPERATIVE NOTE DATE OF OPERATION: 12/02/2020 TIME: 8 p.m. PREOPERATIVE DIAGNOSIS: Right ankle distal fibular fracture and posterior malleolar fracture closed injury. POSTOPERATIVE DIAGNOSIS: Right ankle distal fibular fracture and posterior malleolar fracture closed injury. NAME OF OPERATION: Right ankle open reduction and internal fixation. SURGEON: Jelani Kelley MD TRAIN ENGINEER: None. SUPERVISING ATTENDING: Jelani Kelley MD FINDINGS: The patient had a fractured posterior malleolus and a fractured distal fibula. 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 She was indicated for right ankle open reduction and internal fixation for an unstable ankle fracture. ANESTHESIA: GETA. TOURNIQUET TIME: 84 minutes with a one hour tourniquet holiday followed by 82 minutes of tourniquet time. ESTIMATED BLOOD LOSS: 50 mL. IV FLUIDS: Please see anesthesia report. IV ANTIBIOTICS: Please see anesthesia report. IMPLANTS: Synthes. CULTURES: None. SPECIMENS: None. DESCRIPTION OF PROCEDURE: The patient was met in the preoperative holding area where the patient's operative extremity was signed, the patient's consent was confirmed to be correct, and the patient's identity was confirmed to be correct. The patient was then transported to the operating theater where she was initially placed in a prone position on the radiolucent flat-top surgical table. A safety strap secured the patient to the bed. All bony prominences were well padded. The contralateral lower extremity had an SCD placed. A timeout was called which confirmed the correct patient, correct operative extremity and correct consent. All staff was in agreement. The patient was then draped in the usual sterile fashion. We began the procedure by obtaining fluoroscopic imaging of the patient's right ankle with an AP and lateral view to [place] out our surgical site which was a modified posteromedial approach to address the posterior malleolar fracture. We incised the skin sharply. Our incision was approximately 4 inches in length. After incising the skin using electrocautery to make my way to the tarsal tunnel fascia, I was careful to protect the integrity of the Achilles tendon sheath. After identifying the fascia overlying the tarsal tunnel, we incised it sharply with a knife and used tenotomies in order to perform a neurolysis of the tibial nerve. This was protected and retracted medially. I then identified the flexor hallucis longus muscle belly which was reflected laterally. We then identified the posterior malleolar fracture. This was cleaned using a scalpel and normal saline, bulb syringe and then extracted hematoma from the posterior malleolar fracture site. There was a second fragment more medially. However, this was nondisplaced. At this point in time, I then used a ball spike pusher in order to reduce the fracture and held it with thin K-wires. I then placed a posterior malleolar plate into position and secured this with thin wires. I then obtained fluoroscopic imaging and demonstrated we were satisfied with our posterior malleolar fracture reduction as well as our posterior malleolar plate. I secured the posterior malleolar plate at the apex of the fracture using a cortical screw to buttress the fracture into position and added two additional screws to the proximal aspect of the plate in order to provide buttress effect to compress the posterior malleolar fracture. I then placed three additional screws using lag by technique in order to further compress the intra-articular extension of the posterior malleolar fracture. We obtained fluoroscopy which demonstrated that we were satisfied with our posterior malleolar fracture reduction as well as our implant placement. At this point in time, I then deflated the tourniquet at 84 minutes. First we copiously irrigated the surgical site with three liters of normal saline. Then I placed 1 gm of vancomycin powder on the implants. I closed the dermal layer using 2-0 Vicryl and closed the skin using a 3-0 running nylon suture. The patient was then redraped and repositioned in a supine position to address the distal fibular fracture. This is described below. After the patient was repositioned, we redraped the patient to address the distal fibular fracture. We obtained fluoroscopic imaging to demonstrate the location of the fracture and used this to [place] out my skin incision which was the lateral approach to the distal fibula with the skin incision approximately 4 inches in length. I incised the skin sharply, looking for the superficial peroneal nerve which was not identified. I then used meticulous hemostasis to make my way to the periosteum of the distal fibula. This was incised sharply with a knife. I identified the spiral fracture. I used a joker to open up the fracture. I cleaned the hematoma with a hemostat. I then used a [id number] bone-reducing clamp to reduce the distal fibular fracture which was then anatomic. I then placed two 2.7 mm cortical screws using lag by technique in order to provide absolute stability of the distal fibular fracture. We then placed a six-hole distal fibular plate into position, secured it with K-wires and obtained fluoroscopy to ensure we were satisfied with fracture reduction and implant placement. I secured the distal aspect of the distal fibular plate with four locking screws using fluoroscopy to ensure that I did not violate the ankle joint and then secured it proximally with three 3.5 mm cortical screws. At this point in time, I obtained final fluoroscopic imaging to include AP, lateral and mortise view. I then performed dorsiflexion, external rotation stress view to ensure that there was no lateral translation of the fibula and that the syndesmosis was intact. It was. We then copiously irrigated the surgical site and placed 1 gm of vancomycin powder directly on the implants and closed the periosteum using 0 Vicryl, closed the dermal layer using 2-0 Vicryl and closed the epidermis using a 3-0 running nylon stitch. I then placed Xeroform, 4x4s, ABD pads and sterile Webril over the patient's surgical site. The patient's right lower extremity was placed in a well-padded L and U splint. The patient was then extubated without complication and transported to the postanesthesia care unit. The patient will follow the ankle open reduction and internal fixation rehabilitative protocol with nonweightbearing for six weeks. In two weeks she will follow up in [facility] orthopedic clinic for a postoperative wound check. She will then be transitioned to a Cam boot. She will continue to be nonweightbearing for six weeks but we encourage range of motion exercises with physical therapy at two weeks. She will be given pain medication per the hospitalist team. I recommend 81 mg of aspirin starting on the November, for 30 days for DVT chemoprophylaxis. Her care will be transferred to the hospitalist service, likely discharge later today on the November,.
[2020-12-03 07:26] LABS: HEMATOCRIT 34.9 % (36.0-47.0); HEMOGLOBIN 11.7 g/dl (12.0-15.5); MEAN CORPUSCULAR HEMOGLOBIN 29.8 pg (27.0-33.0); MEAN CORPUSCULAR HGB CONC 33.5 g/dl (32.0-36.5); MEAN CORPUSCULAR VOLUME 88.8 fl (80.0-96.0); PLATELET COUNT, AUTOMATED 202 10^3/uL (150-450); RED BLOOD COUNT 3.93 10^6/uL (4.00-5.40); WHITE BLOOD COUNT 13.7 10^3/uL (4.0-10.0)
[2020-12-03 07:49] LABS: BLOOD UREA NITROGEN 12 MG/DL (7-18); CALCIUM LEVEL 7.4 MG/DL (8.5-10.1); CARBON DIOXIDE LEVEL 26 MEQ/L (21-32); CHLORIDE LEVEL 108 MEQ/L (98-107); CREATININE FOR GFR 0.56 MG/DL (0.55-1.30); GLOMERULAR FILTRATION RATE > 60.0 (>60); GLUCOSE, FASTING 138 MG/DL (70-100); POTASSIUM SERUM 3.9 MEQ/L (3.5-5.1); SODIUM LEVEL 138 MEQ/L (136-145)
--- NOTE | 2020-12-03 08:25 | ER ---
ER CONSULTATION DATE: 12/02/2020 TIME: 10 am CONSULTED SERVICE: Orthopaedic surgery. CONSULTED PHYSICIAN: Jelani Kelley MD HISTORY OF PRESENT ILLNESS: This is a 30-year-old female with a right ankle closed posterior malleolus and distal fibular fracture. She sustained a ground level fall after twisting her ankle in a field. The patient was at a bonfire in the pres[employer] consultant of 12/02/2020 and the patient twisted her right ankle while running through a field. The patient presented to the emergency department due to right ankle pain and inability to bear weight on the right ankle. She was found to have the aforementioned injury. Orthopaedic surgery was consulted for the aforementioned injury and she is indicated for right ankle open reduction internal fixation for an unstable right ankle fracture. CODE STATUS: FULL. PAST MEDICAL HISTORY: Includes mild asthma, insomnia, and depression. PAST SURGICAL HISTORY: Tonsillectomy, section, wisdom teeth extraction, dilation and curettage, and tubal ligation. ALLERGIES: Patient denies. CURRENT MEDICATIONS: Include: - Prozac - albuterol SOCIAL HISTORY: Patient quit smoking 3 years prior. She drinks two beers daily socially. Denies IV drug use. FAMILY HISTORY: Hypertension and heart disease. REVIEW OF SYSTEMS: 14-point review of systems was negative unless as otherwise described in the history of present illness (HPI) above. PHYSICAL EXAMINATION: Alert and oriented to person, time, and place. Patient had no breaks in the skin of the right ankle with minimal swelling. She had tenderness to palpation about the posterior and lateral aspect of her right ankle. She was otherwise neurovascularly intact to the right lower extremity. She had 5/5 motor strength in the extensor hallucis longus (EHL), flexor hallucis longus (FHL), tibialis anterior, gastrocnemius, and peroneal musculature. Sensation intact to light touch to the deep and superficial peroneal, sural, saphenous, and tibial nerve distributions. She had 2+ dorsalis pedis and posterior tibial arterial pulse and brisk capillary refill to the digits. Radiographs demonstrate a posterior malleolar fracture with two main fragments and a distal fibular spiral fracture. CT scan confirms the above findings with intraarticular extension in the posterior malleolar fracture. IMPRESSION: 30-year-old female with a right ankle fracture requiring open reduction internal fixation for stabilization. PLAN: At this point in time, the patient will be maintained nothing by mouth until surgery today on 12/02/2020. Her code status is negative. She is indicated for a right ankle open reduction internal fixation for the aforementioned injury which will proceed on 12/02/2020 at time and space available.
--- NOTE | 2020-12-03 08:59 | REP ---
INDICATION: ORIF RIGHT ANKLE. COMPARISON: None. TECHNIQUE: Intraoperative fluoroscopic imaging using portable C-arm technique FINDINGS: Patient is status post satisfactory open reduction and fixation for tibial and fibular fractures. Total fluoroscopic time 2 minutes 19 seconds. IMPRESSION: Status post satisfactory open reduction and fixation for ankle fractures of the distal tibia and fibula.. <Electronically signed by Russell Chaudhary > 12/03/20 0847
[2020-12-03] MEDS ORDERED: ACETAMINOPHEN TAB 650MG DOSE (2X325MG) PO PRN (09:50)
[2020-12-03] MEDS ORDERED: IBUPROFEN 600MG TAB PO PRN (09:50)
[2020-12-03] MEDS ORDERED: traMADol 50 MG TAB PO PRN (09:50)
[2020-12-03] MEDS ORDERED: ACET1TAB55 PO (10:19)
[2020-12-03] MEDS ORDERED: TRAM50TA2 PO (10:19)
[2020-12-03] MEDS ORDERED: ASPI81CH33 PO (10:19)
[2020-12-03] MEDS ORDERED: IBUP-1022 PO (10:19)
--- NOTE | 2020-12-03 21:01 | DS.PDOC ---
Discharge Summary General Date of Admission Dec 02, 2020 at 13:20 Date of Discharge 12/03/2020 Discharge Summary PRIMARY CARE PHYSICIAN: GILBERT Hamilton ATTENDING AT TIME OF DISCHARGE: Dr. Radhika Mcconnell, DO DISCHARGE DIAGNOS(E)S: Closed posterior malleolus and distal fibular fracture of the right ankle HPI & HOSPITAL COURSE: The patient was at a birthday constitution party, inebriated, and running through field when she twisted her ankle. She presented to the emergency department and was found to have a trimalleolar right ankle fracture. She was seen and evaluated by orthopedic surgery who brought her to the OR and performed a right ankle open reduction and internal fixation. She was seen and evaluated postoperatively today and seem to be doing well. She [facility]. She will be nonweightbearing for 6 weeks, but is encouraged to do range of motion exercises with physical therapy at 2 weeks. PHYSICAL EXAMINATION ON DISCHARGE: GENERAL: Awake, alert, oriented x3. CARDIOVASCULAR EXAMINATION: Regular rate and rhythm, with no rubs, gallops, or murmur. RESPIRATORY EXAMINATION: Clear to auscultation bilaterally with no wheezes, rales, or rhonchi. ABDOMINAL EXAMINATION: Soft, nontender, nondistended. Bowel sounds present. EXTREMITIES: Right lower extremity in splint DISPOSITION: Home DISCHARGE INSTRUCTIONS: She should follow-up at the [facility] orthopedic clinic for postoperative wound check in 2 weeks. Diet as tolerated. Nonweightbearing for 6 weeks. If you experience worsening of your symptoms, please call your doctor or return to the emergency department. DISCHARGE MEDICATIONS: -Recommend 81 mg of aspirin starting on 04 December 2020 for 30 days for DVT chemoprophylaxis -Ibuprofen, acetaminophen, and as needed tramadol recommended for pain control -Continue home dose of fluoxetine, hydroxyzine, and as needed albuterol. Vital Signs/I&Os Vital Signs Date Time Temp Pulse Resp B/P (MAP) Pulse Ox O2 Delivery O2 Flow Rate FiO2 12/03/20 14:38 16 12/03/20 10:00 97.0 94 114/66 (82) 98 Room Air 12/03/20 05:15 1.0 I&O- Last 24 Hours up to 6 AM 12/03/20 06:00 Intake Total 2960 ml Output Total 850 ml Balance 2110 ml Laboratory Data Labs 24H Laboratory Tests 2 12/03/20 07:16: Nucleated Red Blood Cells % (auto) 0.0, Anion Gap 4L, Glomerular Filtration Rate > 60.0, Calcium Level 7.4#L CBC/BMP Laboratory Tests 12/03/20 07:16 Discharge Medications Scheduled Albuterol Sulfate (Albuterol Sulfate Hfa) 8.5 Gm Hfa.aer.ad, 2 PUFFS PO TID, (Reported) Aspirin (Aspirin) 81 Mg Tab.chew, 1 TAB PO DAILY for pain Fluoxetine Hcl (Fluoxetine HCl) 40 Mg Capsule, 40 MG PO QHS, (Reported) Hydroxyzine HCl (Hydroxyzine HCl) 50 Mg Tablet, 50 MG PO QHS, (Reported) Scheduled PRN Acetaminophen (Acetaminophen) 325 Mg Tablet, 650 MG PO Q4HP PRN for PAIN LEVEL 1-6 Ibuprofen (Ibuprofen) 600 Mg Tablet, 600 MG PO Q6HP PRN for PAIN LEVEL 1-6 Tramadol HCl (Tramadol HCl) 50 Mg Tablet, 50 MG PO Q12HP PRN for SEVERE PAIN (PS 8-10) Allergies Coded Allergies: No Known Allergies (Unverified , 01/19/17) RADHIKA MCCONNELL DO Dec 03, 2020 21:01
== END 2020-12-03 14:55 | disposition home or self-care (01) ==
LOC: M ED 02:58 → INTOOBSV 13:20 → M ED INP 13:20 → ENRESERV 14:55 → M MS5PR 17:04
PROVIDERS: ADMIT Neuromusculoskeletal Medicine & OMM; ATTEND Neuromusculoskeletal Medicine & OMM
DX: S82.851A Displaced trimalleolar fracture of right lower leg, initial encounter for closed fracture (principal); X50.1XXA Overexertion from prolonged static or awkward postures, initial encounter; Y92.89 Other specified places as the place of occurrence of the external cause; Y93.01 Activity, walking, marching and hiking; Y99.8 Other external cause status; J45.909 Unspecified asthma, uncomplicated; G47.00 Insomnia, unspecified; F32.9 Major depressive disorder, single episode, unspecified; Z79.899 Other long term (current) drug therapy; Z79.82 Long term (current) use of aspirin; Z79.52 Long term (current) use of systemic steroids; Z87.891 Personal history of nicotine dependence; Z87.440 Personal history of urinary (tract) infections
CPT/HCPCS: 27822; 36415; 73590; 73610; 73700; 76000; 80048; 82077; 84702; 85025; 85027; 87631; 96374; 96375; 96376; 97116; 97161; 99284; C1713; J0131; J0690; J1100; J1170; J1885; J2250; J2270; J2405; J2765; J3010; J3370

== ENCOUNTER → 2020-12-21 | Outpatient (CLI) | payer OTHER ==
[~2020-12-21] MED LIST changes: +ACET1TAB55 PO; +ALBU8.5H PO; +ASPI81CH33 PO; +FLUO40CA PO; +HYDR50TA70 PO; +IBUP-1022 PO; +PRED10TA2 PO; +TRAM50TA2 PO
--- NOTE | 2020-12-21 11:21 | REP ---
INDICATION: RT TIBIA FX. COMPARISON: Comparison radiographs December 02, 2020. TECHNIQUE: Four views of the right ankle and distal tibia and fibula are provided. FINDINGS: A screw plate fixation device is seen in the distal fibula and another is seen in the posterior aspect of the distal tibia. The trimalleolar fracture is well aligned. Ankle mortise is intact. There is Achilles calcaneal spurring. IMPRESSION: Post open reduction internal fixation for trimalleolar ankle fracture. <Electronically signed by Ryan Echeverria > 12/21/20 [id number]
--- NOTE | 2020-12-21 11:28 | REP ---
INDICATION: RT TIBIA FX. COMPARISON: Comparison right foot radiographs are from July 25, 2020. TECHNIQUE: AP and lateral views of the right foot are provided. FINDINGS: AP and lateral views of the right foot show overall normal mineralization. The patient is status post open reduction internal fixation procedure for ankle fracture. There is Achilles calcaneal spurring. Bones, joints, and soft tissues are otherwise unremarkable. IMPRESSION: No acute bony abnormality. Status post open reduction internal fixation for ankle fracture. <Electronically signed by Ryan Echeverria > 12/21/20 1124
== END ==
LOC: M SOG 10:58
PROVIDERS: ATTEND Orthopaedic Surgery
DX: S82.399A Other fracture of lower end of unspecified tibia, initial encounter for closed fracture (principal); W18.30XA Fall on same level, unspecified, initial encounter; Y92.009 Unspecified place in unspecified non-institutional (private) residence as the place of occurrence of the external cause

== ENCOUNTER → 2020-12-28 | Outpatient (CLI) | payer OTHER ==
--- NOTE | 2020-12-28 14:02 | REP ---
INDICATION: SURGICAL AFTERCARE. COMPARISON: 12/21/2020 TECHNIQUE: Three views FINDINGS: The previously described fractures are unchanged. Status post ORIF stable. No acute fracture is identified. IMPRESSION: No significant change <Electronically signed by Wil Mcqueen > 12/28/20 [id number]
== END ==
LOC: M SOG 09:00
PROVIDERS: ATTEND Orthopaedic Surgery
DX: Z47.89 Encounter for other orthopedic aftercare (principal)

== ENCOUNTER 2021-01-01 12:32 | Emergency (ER) | payer OTHER ==
[~2021-01-01] VITALS: Ht 157.5 cm; Wt 79.5 kg
[2021-01-01 17:08] VITALS: BP 100/70
[2021-01-01 17:11] LABS: BASO # 0.1 10^3/uL (0.0-0.2); BASO % 0.7 % (0.0-1.0); EOS # 0.4 10^3/uL (0.0-0.5); EOS % 4.2 % (0.0-3.0); HEMATOCRIT 40.5 % (36.0-47.0); HEMOGLOBIN 13.7 g/dl (12.0-15.5); LYMPH # 2.6 10^3/uL (1.5-5.0); LYMPH % 29.1 % (24.0-44.0); MEAN CORPUSCULAR HEMOGLOBIN 29.5 pg (27.0-33.0); MEAN CORPUSCULAR HGB CONC 33.8 g/dl (32.0-36.5); MEAN CORPUSCULAR VOLUME 87.1 fl (80.0-96.0); MONO # 0.7 10^3/uL (0.0-0.8); MONO % 8.1 % (2.0-8.0); NEUTROPHILS # 5.2 10^3/uL (1.5-8.5); NEUTROPHILS % 57.6 % (36.0-66.0); PLATELET COUNT, AUTOMATED 216 10^3/uL (150-450); RED BLOOD COUNT 4.65 10^6/uL (4.00-5.40); WHITE BLOOD COUNT 9.1 10^3/uL (4.0-10.0)
[2021-01-01] MEDS ORDERED: CEPHALEXIN 500 MG CAP PO ONE (17:40)
[2021-01-01] MEDS ORDERED: ONDANSETRON 4 MG ORAL DISINTEGRATING TAB PO ONE (17:40)
[2021-01-01] MEDS ORDERED: CEPH500C PO (17:41)
[2021-01-01] MEDS ORDERED: ONDA4TAB6 PO (17:41)
== END 2021-01-01 17:58 | disposition home or self-care (01) ==
LOC: M ED 12:32
DX: T81.49XA Infection following a procedure, other surgical site, initial encounter (principal); S82.399D Other fracture of lower end of unspecified tibia, subsequent encounter for closed fracture with routine healing; W18.30XD Fall on same level, unspecified, subsequent encounter; Y92.009 Unspecified place in unspecified non-institutional (private) residence as the place of occurrence of the external cause; Y99.9 Unspecified external cause status; Z79.82 Long term (current) use of aspirin; Z79.899 Other long term (current) drug therapy
CPT/HCPCS: 36415; 80047; 85025; 86140; 87040; 99283; Q0162

== ENCOUNTER → 2021-01-08 | Outpatient (CLI) | payer OTHER ==
[~2021-01-08] MED LIST changes: +CEPH500C PO; +ONDA4TAB6 PO
--- NOTE | 2021-01-08 12:21 | REP ---
INDICATION: ORTHOPEDIC AFTERCARE. COMPARISON: 12/28/2020 TECHNIQUE: Three views FINDINGS: There has been previous ORIF status quo. There is no significant change from the prior exam. IMPRESSION: S/p ORIF no significant change. <Electronically signed by Wil Mcqueen > 01/08/21 1425
== END ==
LOC: M SOG 12:03
PROVIDERS: ATTEND Orthopaedic Surgery
DX: Z47.89 Encounter for other orthopedic aftercare (principal)

== ENCOUNTER → 2021-02-01 | Outpatient (CLI) | payer OTHER ==
--- NOTE | 2021-02-01 10:52 | REP ---
INDICATION: RT ANKLE FX. COMPARISON: 01/08/2021 TECHNIQUE: Three views FINDINGS: Once again, note is made of previous ORIF. Internal fixation plate and screws are unchanged. Previously described fractures are unchanged. There are no new abnormalities. IMPRESSION: Stable exam <Electronically signed by Wil Mcqueen > 02/01/21 1045
== END ==
LOC: M SOG 09:24
PROVIDERS: ATTEND Orthopaedic Surgery
DX: S82.841D Displaced bimalleolar fracture of right lower leg, subsequent encounter for closed fracture with routine healing (principal); W18.30XD Fall on same level, unspecified, subsequent encounter; Y92.009 Unspecified place in unspecified non-institutional (private) residence as the place of occurrence of the external cause

== ENCOUNTER → 2021-07-31 | Outpatient (CLI) | payer OTHER ==
[~2021-07-31] MED LIST changes: -FLUC150T PO; +FLUC150T9 PO
== END ==
LOC: M SOG 13:04
PROVIDERS: ATTEND Orthopaedic Surgery
DX: M25.571 Pain in right ankle and joints of right foot (principal)

== ENCOUNTER → 2021-12-20 | Outpatient (REF) | payer OTHER | LOC: M SFHCWAGY 17:20 | PROVIDERS: ATTEND Nurse Practitioner Family | DX: Z11.3 Encounter for screening for infections with a predominantly sexual mode of transmission (principal) ==